=== PATIENT | female | born 1960 | race Caucasian/White ===

== ENCOUNTER 2023-10-30 06:58 | Outpatient (CLI) | payer BC, SELFPAY ==
--- NOTE | 2023-10-30 07:15 | CRLHL7_ITS ---
For Patients: As a result of the Century Cures Act, medical imaging exams and procedure reports are released immediately into your electronic medical record. You may view this report before your referring provider. If you have questions, please contact your health care provider. CLINICAL HISTORY: Family history of hemochromatosis FINDINGS: Increased echogenicity of the liver. There is a normal appearance of the hepatic IVC and proximal abdominal aorta. There is no evidence of ascites. The gallbladder is of normal size and there is no evidence of intraluminal stones or sludge. The gallbladder wall measures mm in thickness. The common bile duct is of normal size and measures 6 mm in diameter at the level of the sj hepatis. The visualized portions of the pancreas appears normal. Right kidney is unremarkable. IMPRESSION: Hepatic steatosis. Dictated by Alma Ellington MD @ 10/30/2023 7:41:14 AM (Electronically Signed)
== END 2023-10-30 06:59 | disposition home or self-care (01) ==
LOC: US 07:01
PROVIDERS: PCP Family Medicine; Visit Provider Internal Medicine Gastroenterology
DX: Z83.49 Family history of other endocrine, nutritional and metabolic diseases (principal); K76.0 Fatty (change of) liver, not elsewhere classified; R74.8 Abnormal levels of other serum enzymes; R03.0 Elevated blood-pressure reading, without diagnosis of hypertension
CPT/HCPCS: 76705

== ENCOUNTER 2024-07-08 12:37 | Outpatient (CLI) | payer BC, SELFPAY ==
--- NOTE | 2024-07-08 13:00 | CRLHL7_ITS ---
For Patients: As a result of the Century Cures Act, medical imaging exams and procedure reports are released immediately into your electronic medical record. You may view this report before your referring provider. If you have questions, please contact your health care provider. INDICATION: Pancreatic cyst. COMPARISON: Abdominal MRI dated 30 November 2023. TECHNIQUE: Abdominal MRI with T1 in- and out of phase, T2, diffusion weighted, and progressively delayed post-contrast images. Intravenous gadolinium administered. And 3D Heavily T2 weighted 2D MRCP images. FINDINGS: Moderate diffuse fatty infiltration of the liver. No focal abnormalities identified in the visualized portions of the liver, spleen, adrenal glands, and kidneys. No hydronephrosis. No adenopathy. 1.8 x 1.6 x 1.5 cm lobulated septated cyst in the head of the pancreas is unchanged. A few other small pancreatic cysts are unchanged. The pancreas is otherwise unremarkable. No intra or extrahepatic bile duct dilation with the common bile duct measuring 5 mm. No filling defects in the biliary system. Normal size of the main pancreatic duct. Cholecystectomy. Impression : 1. 1.8 cm lobulated septated cyst in the head of the pancreas is unchanged. A few other small pancreatic cysts are unchanged. Recommend follow-up MRI in 1 year to continue documentation of stability. 2. Moderate diffuse fatty infiltration of the liver. 3. No bile duct dilation. No choledocholithiasis. Normal size of the main pancreatic duct. Management of Incidental Pancreatic Cysts: A White Paper of the ACR Incidental Findings Committee. Journal of the [employer]. Volume 14, Number 7, October 2016, pages [phone]. Dictated by Dung Ellington MD @ 07/10/2024 9:25:29 AM (Electronically Signed)
== END 2024-07-08 12:38 | disposition home or self-care (01) ==
PROVIDERS: PCP Family Medicine; Visit Provider Internal Medicine Gastroenterology
DX: K86.2 Cyst of pancreas (principal); R93.5 Abnormal findings on diagnostic imaging of other abdominal regions, including retroperitoneum; K76.0 Fatty (change of) liver, not elsewhere classified
CPT/HCPCS: 74183; A9575